=== PATIENT | male | born 1940 | race Caucasian/White ===

== ENCOUNTER 2023-06-23 13:54 | Inpatient (IN) ==
[2023-06-23] MEDS: CHLORTHALIDONE PO SCH (20:58)
[2023-06-23] MEDS: CRESTOR TAB 10 MG PO SCH (20:58)
[2023-06-23] MEDS: NORVASC TAB 5 MG PO SCH (20:58)
[2023-06-23] MEDS: LOPRESSOR TAB 25 MG PO SCH (20:59)
[2023-06-23] MEDS: NovoLIN R (or HumuLIN R) SC PRN (21:03)
[2023-06-23] MEDS: PATIENT'S HOME MEDICATION SC SCH (21:05)
[2023-06-23] MEDS: SNACK - Diabetic Appropriate PO SCH (21:30)
[2023-06-23] MEDS: NORCO 5/325 MG TAB PO PRN (22:29)
[2023-06-23 22:39] VITALS: BMI 34.0
[2023-06-24] MEDS: AMARYL TAB 4 MG PO SCH (06:12)
[2023-06-24] MEDS: LASIX PO SCH (10:05)
[2023-06-24] MEDS: COZAAR PO SCH (10:05)
[2023-06-24] MEDS: ASPIRIN EC 81 MG PO SCH (10:05)
[2023-06-24] MEDS: JANUVIA PO SCH (10:05)
[2023-06-24] MEDS: PLAVIX PO SCH (10:06)
[2023-06-26 05:55] LABS: BASOPHILS # (AUTO) 0.1 X10^3/uL (0.0-0.1); BASOPHILS % (AUTO) 1.1 % (0.2-1.0); EOSINOPHILS # (AUTO) 0.3 x10^3/uL (0.0-0.2); EOSINOPHILS % (AUTO) 3.4 % (0.9-2.9); HEMATOCRIT 27.9 % (42.0-54.0); HEMOGLOBIN 9.2 g/dL (13.5-18.0); LYMPHOCYTES # (AUTO) 0.8 X10^3/uL (1.3-2.9); LYMPHOCYTES % (AUTO) 11.2 % (21.0-51.0); MEAN CORPUSCULAR HEMOGLOBIN 28.7 pg (27.0-34.0); MEAN CORPUSCULAR HGB CONC 32.9 g/dL (33.0-35.0); MEAN CORPUSCULAR VOLUME 87.3 fL (80.0-100.0); MONOCYTES # (AUTO) 0.7 x10^3/uL (0.3-0.8); MONOCYTES % (AUTO) 10.1 % (0.0-13.0); NEUTROPHILS # (AUTO) 5.5 x10^3/uL (2.2-4.8); NEUTROPHILS % (AUTO) 74.2 % (42.0-75.0); PLATELET COUNT 306 X10^3/uL (150.0-450.0); RED CELL DISTRIBUTION WIDTH 15.2 % (11.6-16.5); WHITE BLOOD COUNT 7.4 X10^3/uL (3.6-10.0)
[2023-06-26 06:10] LABS: ALBUMIN 2.1 g/dL (3.4-5.0); CARBON DIOXIDE 26.1 mmol/L (21-32); COR CA(FOR HYPOALB) 9.5 mg/dL (8.5-10.1); CREATININE 2.17 mg/dL (0.70-1.30); POTASSIUM 4.8 mmol/L (3.5-5.1); TOTAL PROTEIN 6.1 g/dL (6.4-8.2)
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
[2023-06-26] MEDS: MILK OF MAGNESIA PO PRN (17:52)
[2023-06-27 06:17] LABS: BASOPHILS # (AUTO) 0.1 X10^3/uL (0.0-0.1); BASOPHILS % (AUTO) 1.2 % (0.2-1.0); EOSINOPHILS # (AUTO) 0.3 x10^3/uL (0.0-0.2); EOSINOPHILS % (AUTO) 4.1 % (0.9-2.9); HEMATOCRIT 27.3 % (42.0-54.0); HEMOGLOBIN 9.1 g/dL (13.5-18.0); LYMPHOCYTES # (AUTO) 1.1 X10^3/uL (1.3-2.9); LYMPHOCYTES % (AUTO) 14.1 % (21.0-51.0); MEAN CORPUSCULAR HGB CONC 33.3 g/dL (33.0-35.0); MEAN PLATELET VOLUME 6.8 fL (7.4-11.0); MONOCYTES # (AUTO) 0.9 x10^3/uL (0.3-0.8); MONOCYTES % (AUTO) 11.2 % (0.0-13.0); NEUTROPHILS # (AUTO) 5.5 x10^3/uL (2.2-4.8); NEUTROPHILS % (AUTO) 69.4 % (42.0-75.0); PLATELET COUNT 312 X10^3/uL (150.0-450.0); RED BLOOD COUNT 3.14 X10^6/uL (4.7-6.0); RED CELL DISTRIBUTION WIDTH 15.8 % (11.6-16.5)
[2023-06-27 06:38] LABS: ALANINE AMINOTRANSFERASE 40 Units/L (12-78); ALBUMIN 2.3 g/dL (3.4-5.0); ALKALINE PHOSPHATASE 81 Units/L (46-116); ASPARTATE AMINO TRANSFERASE 36 Units/L (15-37); BLOOD UREA NITROGEN 57 mg/dL (7-18); CALCIUM 8.3 mg/dL (8.5-10.1); CARBON DIOXIDE 26.4 mmol/L (21-32); CHLORIDE 100 mmol/L (98-107); COR CA(FOR HYPOALB) 9.7 mg/dL (8.5-10.1); CREATININE 1.99 mg/dL (0.70-1.30); GLUCOSE 83 mg/dL (65-99); POTASSIUM 4.6 mmol/L (3.5-5.1); SODIUM 133 mmol/L (136-145); TOTAL PROTEIN 6.2 g/dL (6.4-8.2); eGFR NON BLACK RACES 34 (>60)
[2023-06-27] MEDS: JANUVIA PO SCH (08:45)
[2023-06-27] MEDS: LASIX IVP ONE (09:17)
[2023-06-27] MEDS: K-DUR TAB 20 MEQ PO ONE (09:17)
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
--- NOTE | 2023-06-27 16:40 | DR.H&P ---
H&P Allergies Allergies Allergy/AdvReac Type Severity Reaction Status Date / Time cephalexin [From Keflex] Allergy Verified 06/23/23 19:57 Past Surgical History Surgical History: Angioplasty/Stents, CABG/Valve Surgery and Ortho Surgery Family History Family Medical History: [place] and Hypertension Medications Home Medications: Home Medications Medication Instructions Recorded Confirmed Type amlodipine 5 mg tablet 5 mg PO HS 06/24/23 06/24/23 History aspirin 81 mg tablet,delayed 81 mg PO DAILY 06/24/23 06/24/23 History release chlorthalidone 25 mg tablet 12.5 mg PO HS 06/24/23 06/24/23 History clopidogrel 75 mg tablet (Plavix) 75 mg PO DAILY 06/24/23 06/24/23 History furosemide 20 mg tablet (Lasix) 20 mg PO DAILY 06/24/23 06/24/23 History glimepiride 2 mg tablet 2 mg PO DAILY 06/24/23 06/24/23 History insulin degludec 100 unit/mL (3 36 unit subcut HS 06/24/23 06/24/23 History mL) subcutaneous pen (Tresiba FlexTouch U-100 insulin) losartan 100 mg tablet 100 mg PO DAILY 06/24/23 06/24/23 History metoprolol tartrate 25 mg tablet 12.5 mg PO BID 06/24/23 06/24/23 History rosuvastatin 10 mg tablet 10 mg PO HS 06/24/23 06/24/23 History sitagliptin phosphate 100 mg 100 mg PO DAILY 06/24/23 06/24/23 History tablet (Januvia) Labs 06/27/23 05:40 06/27/23 05:40 Labs: Laboratory WBC 8.0 X10^3/uL (3.6-10.0) 06/27/23 05:40 RBC 3.14 X10^6/uL (4.7-6.0) L 06/27/23 05:40 Hgb 9.1 g/dL (13.5-18.0) L 06/27/23 05:40 Hct 27.3 % (42.0-54.0) L 06/27/23 05:40 MCV 87.0 fL (80.0-100.0) 06/27/23 05:40 MCH 29.0 pg (27.0-34.0) 06/27/23 05:40 MCHC 33.3 g/dL (33.0-35.0) 06/27/23 05:40 RDW 15.8 % (11.6-16.5) 06/27/23 05:40 Plt Count 312 X10^3/uL (150.0-450.0) 06/27/23 05:40 MPV 6.8 fL (7.4-11.0) L 06/27/23 05:40 Neut % (Auto) 69.4 % (42.0-75.0) 06/27/23 05:40 Lymph % (Auto) 14.1 % (21.0-51.0) L 06/27/23 05:40 [place] % (Auto) 11.2 % (0.0-13.0) 06/27/23 05:40 Eos % (Auto) 4.1 % (0.9-2.9) H 06/27/23 05:40 Baso % (Auto) 1.2 % (0.2-1.0) H 06/27/23 05:40 Neut # (Auto) 5.5 x10^3/uL (2.2-4.8) H 06/27/23 05:40 Lymph # (Auto) 1.1 X10^3/uL (1.3-2.9) L 06/27/23 05:40 [place] # (Auto) 0.9 x10^3/uL (0.3-0.8) H 06/27/23 05:40 Eos # (Auto) 0.3 x10^3/uL (0.0-0.2) H 06/27/23 05:40 Baso # (Auto) 0.1 X10^3/uL (0.0-0.1) 06/27/23 05:40 Absolute Nucleated RBC 0.1 /100WBC 06/27/23 05:40 Sodium 133 mmol/L (136-145) L 06/27/23 05:40 Corrected Sodium TNP 06/27/23 05:40 Potassium 4.6 mmol/L (3.5-5.1) 06/27/23 05:40 Chloride 100 mmol/L (98-107) 06/27/23 05:40 Carbon Dioxide 26.4 mmol/L (21-32) 06/27/23 05:40 BUN 57 mg/dL (7-18) H 06/27/23 05:40 Creatinine 1.99 mg/dL (0.70-1.30) H 06/27/23 05:40 Est GFR (MDRD) Af Amer 42 (>60) L 06/27/23 05:40 Est GFR (MDRD) Non-Af 34 (>60) L 06/27/23 05:40 Glucose 83 mg/dL (65-99) 06/27/23 05:40 POC Glucose (mg/dL) 331 mg/dL (65-99) H 06/27/23 16:07 Calcium 8.3 mg/dL (8.5-10.1) L 06/27/23 05:40 Corrected Calcium 9.7 mg/dL (8.5-10.1) 06/27/23 05:40 Total Bilirubin 0.50 mg/dL (0.2-1.0) 06/27/23 05:40 AST 36 Units/L (15-37) 06/27/23 05:40 ALT 40 Units/L (12-78) 06/27/23 05:40 Alkaline Phosphatase 81 Units/L (46-116) 06/27/23 05:40 Total Protein 6.2 g/dL (6.4-8.2) L 06/27/23 05:40 Albumin 2.3 g/dL (3.4-5.0) L 06/27/23 05:40 Globulin 3.9 g/dL (2.5-4.5) 06/27/23 05:40 Albumin/Globulin Ratio 0.6 Ratio (1.1-2.1) L 06/27/23 05:40 Physical Exam Vital Signs: Vital Signs Respiratory Rate 20 Respiratory Rate 20 Oriented: Normal Assessment/Plan (1) Muscle weakness (generalized): Status: Acute (2) Edema: Status: Acute (3) CHF (congestive heart failure): Status: Acute (4) Hypertension: Status: Acute (5) Renal insufficiency: Status: Acute (6) Anemia: Status: Acute
--- NOTE | 2023-06-27 16:43 | DR.UPDATE ---
H&P UPDATE (1) Muscle weakness (generalized): History and Physical Update: History and Physical reviewed and patient examined. Changes noted: NO Yes with the following: (2) Edema: History and Physical Update: History and Physical reviewed and patient examined. Changes noted: NO Yes with the following: (3) CHF (congestive heart failure): History and Physical Update: History and Physical reviewed and patient examined. Changes noted: NO Yes with the following: (4) Hypertension: History and Physical Update: History and Physical reviewed and patient examined. Changes noted: NO Yes with the following: (5) Renal insufficiency: History and Physical Update: History and Physical reviewed and patient examined. Changes noted: NO Yes with the following: (6) Anemia: History and Physical Update: History and Physical reviewed and patient examined. Changes noted: NO Yes with the following: Review Yes Any changes to H&P?: No Patient was examined?: Yes
[2023-06-28 06:04] LABS: BASOPHILS # (AUTO) 0.1 X10^3/uL (0.0-0.1); BASOPHILS % (AUTO) 1.4 % (0.2-1.0); EOSINOPHILS # (AUTO) 0.2 x10^3/uL (0.0-0.2); EOSINOPHILS % (AUTO) 3.4 % (0.9-2.9); HEMATOCRIT 26.5 % (42.0-54.0); HEMOGLOBIN 8.7 g/dL (13.5-18.0); LYMPHOCYTES # (AUTO) 0.9 X10^3/uL (1.3-2.9); MEAN CORPUSCULAR HEMOGLOBIN 28.5 pg (27.0-34.0); MEAN CORPUSCULAR HGB CONC 32.6 g/dL (33.0-35.0); MEAN CORPUSCULAR VOLUME 87.3 fL (80.0-100.0); MEAN PLATELET VOLUME 6.8 fL (7.4-11.0); MONOCYTES # (AUTO) 0.6 x10^3/uL (0.3-0.8); MONOCYTES % (AUTO) 9.4 % (0.0-13.0); NEUTROPHILS # (AUTO) 4.9 x10^3/uL (2.2-4.8); NEUTROPHILS % (AUTO) 72.8 % (42.0-75.0); PLATELET COUNT 304 X10^3/uL (150.0-450.0); RED BLOOD COUNT 3.04 X10^6/uL (4.7-6.0); RED CELL DISTRIBUTION WIDTH 15.9 % (11.6-16.5); WHITE BLOOD COUNT 6.8 X10^3/uL (3.6-10.0)
[2023-06-28 06:15] LABS: ALBUMIN 2.1 g/dL (3.4-5.0); CALCIUM 8.1 mg/dL (8.5-10.1); CARBON DIOXIDE 26.3 mmol/L (21-32); COR CA(FOR HYPOALB) 9.6 mg/dL (8.5-10.1); CREATININE 1.93 mg/dL (0.70-1.30); POTASSIUM 4.9 mmol/L (3.5-5.1)
[2023-06-28] MEDS: VITAMIN B-12 INJ IM ONE (10:20)
[2023-06-28] MEDS: HEMOCYTE-PLUS PO SCH (10:20)
[2023-06-29] MEDS: COLACE CAP 100 MG PO ONE (15:59)
[2023-06-29] MEDS: DULCOLAX TAB EC 5 MG PO ONE (16:00)
[2023-06-30 09:17] LABS: BASOPHILS # (AUTO) 0.1 X10^3/uL (0.0-0.1); BASOPHILS % (AUTO) 1.1 % (0.2-1.0); EOSINOPHILS # (AUTO) 0.2 x10^3/uL (0.0-0.2); EOSINOPHILS % (AUTO) 2.7 % (0.9-2.9); HEMATOCRIT 28.2 % (42.0-54.0); HEMOGLOBIN 9.3 g/dL (13.5-18.0); LYMPHOCYTES # (AUTO) 1.1 X10^3/uL (1.3-2.9); LYMPHOCYTES % (AUTO) 12.3 % (21.0-51.0); MEAN CORPUSCULAR HEMOGLOBIN 28.6 pg (27.0-34.0); MEAN CORPUSCULAR HGB CONC 33.1 g/dL (33.0-35.0); MEAN CORPUSCULAR VOLUME 86.3 fL (80.0-100.0); MEAN PLATELET VOLUME 6.8 fL (7.4-11.0); MONOCYTES # (AUTO) 0.5 x10^3/uL (0.3-0.8); MONOCYTES % (AUTO) 5.8 % (0.0-13.0); NEUTROPHILS # (AUTO) 6.8 x10^3/uL (2.2-4.8); NEUTROPHILS % (AUTO) 78.1 % (42.0-75.0); PLATELET COUNT 348 X10^3/uL (150.0-450.0); RED BLOOD COUNT 3.26 X10^6/uL (4.7-6.0); RED CELL DISTRIBUTION WIDTH 15.7 % (11.6-16.5); WHITE BLOOD COUNT 8.6 X10^3/uL (3.6-10.0)
[2023-06-30 09:27] LABS: ALBUMIN 2.4 g/dL (3.4-5.0); CALCIUM 8.5 mg/dL (8.5-10.1); CARBON DIOXIDE 27.8 mmol/L (21-32); COR CA(FOR HYPOALB) 9.8 mg/dL (8.5-10.1); CREATININE 1.72 mg/dL (0.70-1.30); POTASSIUM 4.6 mmol/L (3.5-5.1); TOTAL PROTEIN 6.5 g/dL (6.4-8.2)
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
[2023-06-30] MEDS: COLACE CAP 100 MG PO PRN (15:45)
[2023-07-02 20:48] VITALS: RESP 20
[2023-07-03 06:09] LABS: BASOPHILS # (AUTO) 0.1 X10^3/uL (0.0-0.1); BASOPHILS % (AUTO) 1.3 % (0.2-1.0); EOSINOPHILS # (AUTO) 0.3 x10^3/uL (0.0-0.2); EOSINOPHILS % (AUTO) 3.2 % (0.9-2.9); HEMATOCRIT 27.9 % (42.0-54.0); HEMOGLOBIN 9.3 g/dL (13.5-18.0); LYMPHOCYTES # (AUTO) 2.7 X10^3/uL (1.3-2.9); LYMPHOCYTES % (AUTO) 27.6 % (21.0-51.0); MEAN CORPUSCULAR HEMOGLOBIN 28.7 pg (27.0-34.0); MEAN CORPUSCULAR HGB CONC 33.2 g/dL (33.0-35.0); MEAN CORPUSCULAR VOLUME 86.6 fL (80.0-100.0); MEAN PLATELET VOLUME 6.8 fL (7.4-11.0); MONOCYTES # (AUTO) 0.8 x10^3/uL (0.3-0.8); MONOCYTES % (AUTO) 8.7 % (0.0-13.0); NEUTROPHILS # (AUTO) 5.7 x10^3/uL (2.2-4.8); NEUTROPHILS % (AUTO) 59.2 % (42.0-75.0); PLATELET COUNT 470 X10^3/uL (150.0-450.0); RED BLOOD COUNT 3.23 X10^6/uL (4.7-6.0); RED CELL DISTRIBUTION WIDTH 15.9 % (11.6-16.5); WHITE BLOOD COUNT 9.7 X10^3/uL (3.6-10.0)
[2023-07-03 06:19] LABS: ALANINE AMINOTRANSFERASE 40 Units/L (12-78); ALBUMIN 2.5 g/dL (3.4-5.0); ALKALINE PHOSPHATASE 104 Units/L (46-116); ASPARTATE AMINO TRANSFERASE 23 Units/L (15-37); BLOOD UREA NITROGEN 39 mg/dL (7-18); CALCIUM 8.7 mg/dL (8.5-10.1); CARBON DIOXIDE 30.5 mmol/L (21-32); CHLORIDE 100 mmol/L (98-107); COR CA(FOR HYPOALB) 9.9 mg/dL (8.5-10.1); CREATININE 1.65 mg/dL (0.70-1.30); GLUCOSE 70 mg/dL (65-99); POTASSIUM 4.4 mmol/L (3.5-5.1); SODIUM 136 mmol/L (136-145); TOTAL PROTEIN 6.5 g/dL (6.4-8.2); eGFR NON BLACK RACES 43 (>60)
[2023-07-03 09:58] VITALS: BP 126/58; PULSE 72; TEMP 98.1; O2SAT 98
== END 2023-07-03 11:25 | disposition home or self-care (01) | DRG 914 ==
LOC: MED/SURG 19:15
PROVIDERS: ADMIT Internal Medicine; ATTEND Internal Medicine
DX: D63.8 Anemia in other chronic diseases classified elsewhere; I48.91 Unspecified atrial fibrillation; S97.81XA Crushing injury of right foot, initial encounter; R60.0 Localized edema; Z86.73 Personal history of transient ischemic attack (TIA), and cerebral infarction without residual deficits; R26.89 Other abnormalities of gait and mobility; E11.65 Type 2 diabetes mellitus with hyperglycemia; Z51.89 Encounter for other specified aftercare; E78.5 Hyperlipidemia, unspecified; I50.9 Heart failure, unspecified; N28.89 Other specified disorders of kidney and ureter; I11.0 Hypertensive heart disease with heart failure; W30.89XA Contact with other specified agricultural machinery, initial encounter; M62.81 Muscle weakness (generalized); X58.XXXA Exposure to other specified factors, initial encounter